=== PATIENT | female | born 1955 | race Caucasian/White ===

== ENCOUNTER 2017-12-17 20:45 | Emergency (ER) | payer OTHER, SELFPAY ==
[2017-12-17 20:47] VITALS: BP 159/78; PULSE 102; RESP 20; TEMP 36.7; O2SAT 98; BMI 36.4
== END 2017-12-17 21:10 | disposition left against medical advice (07) ==
LOC: ED 21:12
PROVIDERS: Emergency Provider Emergency Medicine; Family Provider Family Medicine; PCP Family Medicine
DX: R69 Illness, unspecified (principal)

== ENCOUNTER → 2018-02-06 10:03 | Outpatient (CLI) | payer SELFPAY | PROVIDERS: Family Provider Family Medicine; PCP Family Medicine; Visit Provider Urology | DX: N39.0 Urinary tract infection, site not specified (principal) | CPT/HCPCS: 87086; 87088; 87186 ==

== ENCOUNTER → 2018-03-21 11:07 | Outpatient (CLI) | payer SELFPAY ==
[2018-03-21 12:31] LABS: Creatinine, Serum 0.92 mg/dL (0.55-1.02); EST Glomerular Filtration Rate 65 mL/min (>60); Est Glom Filt Rate - Afr Amer 79 mL/min (>60)
== END ==
PROVIDERS: Family Provider Family Medicine; PCP Family Medicine; Referring Provider Urology; Visit Provider Urology
DX: R31.0 Gross hematuria (principal)
CPT/HCPCS: 36415; 82565

== ENCOUNTER → 2018-03-26 07:15 | Outpatient (CLI) | payer SELFPAY ==
--- NOTE | 2018-03-26 07:24 | CT_ITS ---
STUDY: CT ABDOMEN AND PELVIS WITH CONTRAST REASON FOR EXAM: Female, 63 years old. Gross hematuria since October. Irregular heart rate. RADIATION DOSAGE (If Supplied By Facility): CTDIvol = ( 24.71 ) mGy, DLP = ( 3847.89 ) mGycm TECHNIQUE: Transaxial images were obtained from the dome of the diaphragm to the symphysis pubis without oral contrast. 100 ml of Isovue 250 contrast was administered. Sagittal and coronal images were reconstructed. Individualized dose optimization techniques were used for this CT. COMPARISON: None. FINDINGS: The visualized lung bases are unremarkable. The visualized portions of the heart are within normal limits. The liver is enlarged and mildly fatty infiltrated. There is no focal mass. There are surgical clips in the gallbladder fossa consistent with a prior cholecystectomy. Normal spleen. Normal pancreas. Normal bilateral adrenal glands. Normal right kidney. Normal left kidney. Normal bilateral ureters. Normal visualized stomach. Normal small intestine. Normal colon. There is sigmoid diverticulosis without acute inflammatory change. The proximal colon is grossly normal. There is diffuse atherosclerotic calcification of the abdominal aorta, without a demonstrated aneurysm. Normal inferior vena cava. Normal retroperitoneum. Normal urinary bladder. Normal vaginal cuff. There is no pelvic lymphadenopathy or mass. No free air or free fluid is seen within the peritoneal cavity. There is an umbilical hernia of omental fat. The abdominal wall is otherwise unremarkable. There is mild flattening of lumbar lordosis with scattered degenerative changes most marked at L4-5 where there is evidence of spinal mild spinal stenosis.. CT/CT Abd/Pelvis W/WO Contrast IMPRESSION: 1. No visualized abnormality of the kidneys ureters or urinary bladder. 2. Enlarged fatty infiltrated liver without mass. 3. Diverticulosis without acute inflammatory change. 4. Status post hysterectomy and cholecystectomy. 5. Degenerative changes of the lumbar spine. Electronically Signed: Eddie Power DO at 17:09 EDT Tel [phone], Service support ,
== END ==
PROVIDERS: Family Provider Family Medicine; PCP Family Medicine; Referring Provider Urology; Visit Provider Urology
DX: R31.0 Gross hematuria (principal)
CPT/HCPCS: 74178; Q9967

== ENCOUNTER → 2018-04-18 10:01 | Outpatient (CLI) | payer SELFPAY ==
--- NOTE | 2018-04-18 10:06 | CYSPIN_PTH ---
PATIENT: KYLEE LING LOC: [facility] U#:[id number] AGE/SX: 70/F ROOM: RE04/18/[address]: Dr. Brooke Dickson MD : 1955 BED: DIS: SPEC #: [id number] RECD: 04/18/18 12:33 STATUS: GREGORY FELICIA #: [id number] BOBBY: 04/18/18 10:[address]: Brooke Dickson DEPT: CYTOLOGY RECD BY: Joseph Marc ENTERED: 04/18/18 12:33 SP TYPE: CYSPIN FL OTHR DR: Dr. Attila Gill, Tissues: Urine Procedures: Pap Stain (control) Special Stain Group II Cytospin Fluid HEADER OPERATION: Not noted PRE-OP DIAGNOSIS: Hematuria TISSUE SUBMITTED: Urine for cytology DIAGNOSIS CYTOLOGY Urine for cytology (cytospin): Negative for malignant cells. SJ:kamran 04/19/18 CYTOLOGY STUDY Slides are reviewed. The specimen predominantly consists of benign squamous epithelial cells, a few neutrophils, organisms consistent with bacteria and a few red blood cells. CYTOLOGY GROSS Received is 20 ml of cloudy light yellow fluid labeled with the patient's name and and designated per the requisition as urine. Submitted for cytology preparation. / 04/18/18 TC:5 CPT: 97711
[2018-04-18 10:07] LABS: Cytology, Body Fluid / CSF SEE PATHOLOGY REPORT
== END ==
PROVIDERS: Family Provider Family Medicine; PCP Family Medicine; Referring Provider Urology; Visit Provider Urology
DX: R31.0 Gross hematuria (principal)
CPT/HCPCS: 88108; 88313

== ENCOUNTER 2023-01-18 10:15 | Outpatient (RCR) | payer MEDICARE, SELFPAY ==
[2022-12-27 12:56] VITALS: BP 173/82; PULSE 77; RESP 16; TEMP 36; BMI 41.8
--- NOTE | 2022-12-27 16:29 | HP.PCM_ITS ---
History of Present Illness Date of Service: 12/27/22 Chief Complaint: Chronic wound of the right great toe History of Wound: This is a 67-year-old diabetic female who presents with open wound on the right great toe which has been present for approximately 5 weeks. She is somewhat uncertain as to the etiology of the wound, though does not exclude the possibility of trauma. She has been intermittently applying Neosporin topically. She was diagnosed with cellulitis by her primary care physician, and has been treated with courses of oral Cipro and Bactrim. An x- ray on December 15, 2022, revealed no evidence of osteomyelitis or foreign body. The patient monitors her blood sugars, and is only moderately well controlled. Recent blood work was done at [facility], with results as follows: Hemoglobin A1c 6.8, glucose 121, TSH 2.40, sodium 143, potassium 4.1, chloride 103, BUN 8, creatinine 0.94, calcium 9.2, protein 6.2, albumin 3.5, alkaline phosphatase 71, AST 18, ALT 36, cholesterol 205, triglycerides 118, HDL cholesterol 49, LDL cholesterol 132. [facility] Medical History Chronic wound Diabetes mellitus Hypertension Hypothyroidism Morbid obesity with BMI of 40.0-44.9, adult Open toe wound Home Medications Cetirizine Hcl [Zyrtec] 10 mg PO QHS 05/04/14 [History Last Taken Unknown] calcium carbonate 600 mg calcium (1,500 mg) tablet (Caltrate 600) 1,200 mg PO QHS 05/04/14 [History Last Taken Unknown] cholecalciferol (vitamin D3) 25 mcg (1,000 unit) tablet (Vitamin D3) 2,000 unit PO DAILY 05/04/14 [History Last Taken Unknown] escitalopram oxalate 20 mg tablet 20 mg PO QHS 05/04/14 [History Last Taken Unknown] metoprolol tartrate 100 mg tablet 50 mg PO Q12H 05/04/14 [History Last Taken 05/12/14 19:45] risperidone 0.5 mg tablet 1.5 mg PO QHS 05/04/14 [History Last Taken Unknown] acidophilus 25 million cell-pectin, citrus 100 mg tablet 1 ea PO BID #10 tabs 05/14/14 [Rx Last Taken Unknown] clindamycin HCl 300 mg capsule (Cleocin HCl) 300 mg PO TID ##15 05/14/14 [Rx Last Taken Unknown] oxycodone-acetaminophen 5 mg-325 mg tablet 1 - 2 tab PO 4X/DAY PRN PRN Pain #50 tabs 05/14/14 [Rx Last Taken Unknown] promethazine 25 mg tablet 25 mg PO 4X/DAY PRN PRN Nausea ##30 05/14/14 [Rx Last Taken Unknown] acetaminophen 500 mg capsule 1,000 mg PO Q6H PRN pain 12/27/22 [History Last Taken Unknown] albuterol sulfate 90 mcg/actuation aerosol inhaler (ProAir HFA) 2 inh inhalation Q4H PRN shortness of breath or wheezing 12/27/22 [History Last Taken Unknown] dulaglutide 0.75 mg/0.5 mL subcutaneous pen injector (Trulicity) 0.75 mg subcut QWEEK 12/27/22 [History Last Taken Unknown] dulaglutide 1.5 mg/0.5 mL subcutaneous pen injector (Trulicity) 1.5 mg subcut QWEEK 12/27/22 [History Last Taken Unknown] gabapentin 300 mg capsule 300 mg PO TID 12/27/22 [History Last Taken Unknown] hydrocodone-acetaminophen 5-325mg 5mg-325mg 1 tab PO TID PRN pain 12/27/22 [History Last Taken Unknown] hydroxyzine HCl 25 mg tablet 25 mg PO Q6H PRN itching 12/27/22 [History Last Taken Unknown] hyoscyamine 0.15 mg tablet 0.125 mg PO Q6H PRN PRN dyspepsia 12/27/22 [History Last Taken Unknown] isosorbide mononitrate 30 mg tablet,extended release 24 hr 30 mg PO DAILY 12/27/22 [History Last Taken Unknown] levothyroxine 75 mcg capsule 75 mcg PO DAILY 12/27/22 [History Last Taken Unknown] lisinopril 2.5 mg tablet 2.5 mg PO DAILY 12/27/22 [History Last Taken Unknown] meclizine 12.5 mg tablet 12.5 mg PO TID PRN dizziness 12/27/22 [History Last Taken Unknown] ondansetron 4 mg disintegrating tablet 4 mg PO Q6H PRN nausea and vomiting 12/27/22 [History Last Taken Unknown] oxybutynin chloride 15 mg tablet,extended release 24 hr 15 mg PO DAILY 12/27/22 [History Last Taken Unknown] pantoprazole 40 mg tablet,delayed release 40 mg PO DAILY 12/27/22 [History Last Taken Unknown] pioglitazone 15 mg tablet 15 mg PO DAILY 12/27/22 [History Last Taken Unknown] rosuvastatin 20 mg tablet 20 mg PO DAILY 12/27/22 [History Last Taken Unknown] tizanidine 4 mg capsule 4 mg PO Q8H 12/27/22 [History Last Taken Unknown] Allergy/AdvReac Type Severity Reaction Status Date / Time clindamycin Allergy Mild Hives Verified 12/27/22 13:14 amoxicillin [Amoxicillin] Allergy Hives Verified 12/17/17 20:49 cefaclor [From Ceclor] Allergy Hives Verified 12/17/17 20:49 erythromycin base Allergy Hives Verified 12/17/17 20:49 [Erythromycin Base] nitrofurantoin Allergy Hives Verified 12/17/17 20:49 macrocrystalline [From Macrodantin] Penicillins Allergy Hives Verified 12/17/17 20:49 Sulfa (Sulfonamide AdvReac Vomiting Verified 12/17/17 20:49 Antibiotics) Surgical History History of appendectomy History of bilateral breast reduction surgery History of bunionectomy of both great toes History of carpal tunnel release History of cholecystectomy History of colon resection History of hysterectomy Social History Smoking Status: Never smoker Vital Signs Vital Signs Vital Signs: 12/27/22 12:56 Temperature 96.8 F L Temperature Source Temporal Pulse Rate 77 Respiratory Rate 16 Blood Pressure 173/82 H Blood Pressure Mean 112 Blood Pressure Source Monitor Blood Pressure Position Sitting Blood Pressure Location Left Arm Oxygen Delivery Method Room Air Weight Weight: 267 lb Body Mass Index (BMI) 41.8 Physical Exam Const alert, oriented x3, no apparent distress and well nourished Constitutional Narrative: The patient is morbidly obese. General Appearance: cooperative, comfortable, well kempt and well developed Orientation / Consciousness: awake, oriented to person, oriented to place and oriented to time HEENT normocephalic, head/scalp atraumatic and hearing grossly normal bilaterally Head and Scalp: normal to inspection, normocephalic and atraumatic Face and Sinus: normal facial exam Nose: external nose normal External Ear: external ears normal Eyes PERRL, EOMs intact bilaterally and conjunctivae normal General Eye: normal appearance of both eyes Neck full ROM Resp normal respiratory effort, normal air movement, no retractions and no use of accessory muscles Effort and Inspection: able to speak in complete sentences Extremity no calf tenderness General Extremity: Negative for clubbing or cyanosis Skin Wound Narrative: An ulceration is noted on the plantar aspect of the right great toe, near the interphalangeal joint. There is callus at this location, suggesting presence of pressure phenomenon or friction. There is no sign of infection or cellulitis. There is no drainage. There is no odor. There is a moderate amount of bioburden and nonviable tissue. Dimensions are documented elsewhere. Neuro oriented x3, CN's II-XII intact bilaterally, moves all extremities and no focal motor deficits Sensorium / Orientation: awake, alert, oriented to person, oriented to place, oriented to time and orientation impaired Psych Appearance: grossly normal and appropriate Attitude: calm Activity / Motor Behavior: appropriate eye contact Speech: normal speech Mood & Affect: euthymic mood Thought Process: normal thought process Thought Content: normal thought content Attention / Concentration: attention grossly intact Debridement Note Debridement Note Wound debrided: Right great toe Laterality: Right Type of Debridement: Excisional debridement Anesthesia Used: 5% Lidocaine Gel Depth: Down to and including healthy tissue and in the subcutaneous layer Percentage of wound debrided: 100 Instrument Used: 3mm curette Tissue Removed: Nonviable tissue, callus, and bioburden Severity: Fat Layer Exposed Amount of bleeding with debridement: Mild Bleeding Controlled with: Compression and gauze Patient tolerated procedure: Patient tolerated procedure well Post-Debridement Measurements and Additional Note: Post-Debridement Measurements/Treatment - Nurse 1 - General Ulcer Assessment Start: 12/27/22 12:55 Freq: Status: Active Protocol: CYNDI Activity Type Activity Date Activity User E-sign Co-sign Detail Recorded Client Recorded Date Recorded By Document 12/27/22 12:56 [facility] [id number] 12/27/22 13:09 [facility] 12/27/22 12:56 - Today's Visit Information Type of service Follow-up Visit (Physician/SENIOR IOS DEVELOPER ) Arrival Mode Ambulatory Transfer Assistance None Accompanied by Patient Identification Verified (Name & Yes ) Patient Requires Transmission-Based No Precautions Height and Weight Height 5 ft 7 in Weight 267 lb Weight in Pounds 267.0 lbs Body Mass Index (BMI) 41.8 BMI Classification Obese BSA - Nancy 2.29 Vital Signs Temperature (97.8 F-99.1 F) 96.8 F L Temperature Source Temporal Pulse Rate (60-100) 77 Pulse Location Monitor Respiratory Rate (12-18) 16 Respiratory rate source Observation Oxygen Delivery Method Room Air Blood Pressure (90/60-120/80) 173/82 H Blood Pressure Mean 112 Source Monitor Position Sitting Blood Pressure Location Left Arm History Since Last Visit- (Skip if this is Patient's initial visit) Left Footwear Regular Shoe Right Footwear Regular Shoe Pain Scale: 0-10 Numeric Is Patient Pain Free? Yes Lower Extremity Assessment/ Foot Assessment/ Toe Nail Assessment Right -Posterior Tibial Doppler Multiphasic -Dorsalis Pedis Doppler Multiphasic -Extremity Color Pale -Hair Growth on Legs Yes -Hair Growth on Toes No -Other Deformity No -Prior Foot Ulcer No -Charcot Joint No -Prior Amputation No -Thick No -Discolored No -Deformed No -Improper Length & Hygeine No Left -Posterior Tibial Doppler Multiphasic -Dorsalis Pedis Doppler Multiphasic -Extremity Color Pale -Hair Growth on Legs Yes -Hair Growth on Toes No -Other Deformity No -Prior Foot Ulcer No -Charcot Joint No -Prior Amputation No -Thick No -Discolored No -Deformed No -Improper Length & Hygeine No Communication Assessment Preferred language French Medical Office Assistant Required No Able to Read Yes Able to Write Yes Communication Tools None Right Hearing Abillity Normal Left Hearing Abillity Normal Visual Assistive Devices Glasses Teaching Assessment Preferences Verbal,Written, Audio/Visual, Demonstration Barriers to Learning None Readiness To Learn Excellent Willingness to Engage in Self Management High Activies Readiness to Engage in Self Management High Activities Anxiety Level Calm Cooperation Cooperative Perception Coherent Interest in Health Problem Asks Questions Education Importance Acknowledges Need Does Patient Smoke tobacco or other No substances Smoking Status Never smoker Is Patient Diabetic Yes Functional Assessment Recent Decline in Ability to Perform Denies Any Declines Culture/Lutheran/Automotive Service Director Cultural/Lutheran Needs that may affect No Treatment Plan Teaching: Wound Center *Welcome to the Wound Center -Person Taught Patient, Significant Other -Response to teaching Verbalize understanding Welcome to the Wound Care Center French - Nurse 1 - General Ulcer Measurement Start: 12/27/22 12:55 Freq: Status: Active Protocol: Activity Type Activity Date Activity User E-sign Co-sign Detail Recorded Client Recorded Date Recorded By Document 12/27/22 12:56 [facility] [id number] 12/27/22 13:09 [facility] 12/27/22 12:56 Wound Center Nurse 1 #1- R HALLUX PL[employer]AR -Combined with other wound No -Current Size (cm) - Length 0.1 -Current Size (cm) - Width 1 -Current Size (cm) - Depth 0.1 -Total Square Cm 0.1 -Date of Last Picture (Recall this 12/27/22 field) -Photo Taken Yes -Epithelialization None Present -Tunneling No -Undermining/Tunneling No -Circular Undermining No -Exudate Amt Small -Exudate Type Serosanguineous -Wound Margin Distinct, Outline Attached -Granulation Amt Small (1-33%) -Granulation Quality Red -Slough/Fibrin Yes -Necrosis Amt Large (67-100%) -Necrotic Tissue Type Adherent Slough -Texture (Xena-wound Skin Appearance) Callus,Scarring -Moisture ([place]-wound Skin Appearance) Assessed,Dry/ Scaly -Color ([place]-wound Skin Appearance) Assessed -Temperature ([place]-wound Skin No Abnormality Appearance) (Pt Warm) -Tenderness on Palpation ([place]-wound No Skin Appearance) -Ulcer Cleansing Rinsed/ Irrigated with Saline -Foul Odor after Cleansing No -Anesthetic Used 5% Lidocaine Gel Lower Limb Edema Present Yes Right Calf (cm) 38.1 Right Ankle (cm) 21 - Nurse 2 - General Ulcer CM Notes Start: 12/27/22 12:55 Freq: Status: Active Protocol: Activity Type Activity Date Activity User E-sign Co-sign Detail Recorded Client Recorded Date Recorded By Document 12/27/22 16:06 PL [id number] 12/27/22 16:07 PL 12/27/22 16:06 Wound Center Nurse 2 #1- R HALLUX [employer]AR -Time 13:29 -Correct Patient Yes -Correct Side, Site, Position Yes -Correct Procedure Yes -Procedure Performed Yes -Type of Procedure Debridement -Clinical Debridement Subcutaneous -Tissue Removed Subcutaneous -Post Debridement (cm) - Length 0.1 -Post Debridement (cm) - Width 1.0 -Post Debridement (cm) - Depth 0.1 -Total Square (Post) (cm) 0.10 -Area of Debridement (cm) - Length 0.1 -Area of Debridement (cm) - Width 1.0 -Total Square (Area) (cm) 0.10 -Tunneling No -Undermining/Tunneling No -Circular Undermining No -Wound/Ulcer Outcome Not Healed -Ulcer Cleansing Rinsed/ Irrigated with Saline -Foul Odor after Cleansing No -Bioengineered Tissue No -Bleeding Controlled with Pressure -Treatment Response Procedure Tolerated Well -Debridement - Subq, 1st 20sq cm Yes Pain Scale: 0-10 Numeric Is Patient Pain Free? Yes - Nurse 3 - General Ulcer D/C NN Start: 12/27/22 12:55 Freq: Status: Active Protocol: Activity Type Activity Date Activity User E-sign Co-sign Detail Recorded Client Recorded Date Recorded By Document 12/27/22 13:49 [id number] 12/27/22 13:50 12/27/22 13:49 Wound Care Center Nurse 3 #1- R HALLUX PLANTAR -Ulcer Cleansing Rinsed/ Irrigated with Saline -Primary Dressing Applied C Hydrogel ($) -Primary Dressing Covered/Secured with Dry Gauze, Secured with Tape Pain Scale: 0-10 Numeric Is Patient Pain Free? Yes - Visit Discharge Discharge Condition Stable Ambulatory Status Ambulatory Transportation Private Auto Medication Reconcilliation completed & No provided to patient/care provider Clinical Summary of Care Provided Yes Assessment/Plan Assessment/Plan (1) Open toe wound: CODE(S): S91.109A - Unspecified open wound of unspecified toe(s) without damage to nail, initial encounter QUALIFIERS: Encounter type: initial encounter Qualified Code(s): S91.109A - Unspecified open wound of unspecified toe(s) without damage to nail, initial encounter (2) Chronic wound: CODE(S): T14.8XXA - Other injury of unspecified body region, initial encounter (3) Diabetes mellitus: CODE(S): E11.9 - Type 2 diabetes mellitus without complications (4) Morbid obesity with BMI of 40.0-44.9, adult: CODE(S): E66.01 - Morbid (severe) obesity due to excess calories; Z68.41 - Body mass index [BMI] 40.0-44.9, adult (5) Hypertension: CODE(S): I10 - Essential (primary) hypertension (6) Hypothyroidism: CODE(S): E03.9 - Hypothyroidism, unspecified (7) History of colon resection: CODE(S): Z90.49 - Acquired absence of other specified parts of digestive tract (8) History of appendectomy: CODE(S): Z90.49 - Acquired absence of other specified parts of digestive tract (9) History of bilateral breast reduction surgery: CODE(S): Z98.890 - Other specified postprocedural states (10) History of carpal tunnel release: CODE(S): Z98.890 - Other specified postprocedural states (11) History of bunionectomy of both great toes: CODE(S): Z98.890 - Other specified postprocedural states (12) History of hysterectomy: CODE(S): Z90.710 - Acquired absence of both cervix and uterus (13) History of cholecystectomy: CODE(S): Z90.49 - Acquired absence of other specified parts of digestive tract PLAN: Plan This is a 67-year-old diabetic female who presents with an ulceration on the plantar aspect of her right great toe. This ulceration has been present for approximately 5 weeks. Its etiology is uncertain. However, there is considerable amount of callus surrounding the ulceration, suggesting the existence of pressure phenomenon or friction. This matter has been discussed with the patient and her at the bedside. She has been urged to assure that her shoes fit appropriately. Offloading measures have been recommended. We are to place a consult to the podiatry service, for assessment in this regard. Proper footwear or inserts will be helpful. We are to implement the use of collagen hydrogel topically, which will be applied by the patient on a daily basis. The appropriate means of application has been demonstrated. Optimization of the patient's glycemic control has been recommended. Nutritional optimization has also been discussed. Patient is to return in 1 week for reassessment. Total time: 50 minutes
[2023-01-02 10:23] VITALS: BP 165/81; PULSE 79; RESP 18; TEMP 36.2; BMI 41.8
--- NOTE | 2023-01-02 12:59 | HP.PCM_ITS ---
History of Present Illness Date of Service: 01/02/23 Chief Complaint: Chronic wound of the right great toe History of Wound: This is a 67-year-old diabetic female who presented with open wound on the right great toe which had been present for approximately 5 weeks. She is somewhat uncertain as to the etiology of the wound, though does not exclude the possibility of trauma. She had been intermittently applying Neosporin topically. She was diagnosed with cellulitis by her primary care physician, and has been treated with courses of oral Cipro and Bactrim. An x- ray on December 15, 2022, revealed no evidence of osteomyelitis or foreign body. The patient monitors her blood sugars, and is only moderately well controlled. Recent blood work was done at [facility], with results as follows: Hemoglobin A1c 6.8, glucose 121, TSH 2.40, sodium 143, potassium 4.1, chloride 103, BUN 8, creatinine 0.94, calcium 9.2, protein 6.2, albumin 3.5, alkaline phosphatase 71, AST 18, ALT 36, cholesterol 205, triglycerides 118, HDL cholesterol 49, LDL cholesterol 132. [facility] Medical History Chronic wound Diabetes mellitus Hypertension Hypothyroidism Morbid obesity with BMI of 40.0-44.9, adult Open toe wound Home Medications Cetirizine Hcl [Zyrtec] 10 mg PO QHS 05/04/14 [History Last Taken Unknown] calcium carbonate 600 mg calcium (1,500 mg) tablet (Caltrate 600) 1,200 mg PO QHS 05/04/14 [History Last Taken Unknown] cholecalciferol (vitamin D3) 25 mcg (1,000 unit) tablet (Vitamin D3) 2,000 unit PO DAILY 05/04/14 [History Last Taken Unknown] escitalopram oxalate 20 mg tablet 20 mg PO QHS 05/04/14 [History Last Taken Unknown] metoprolol tartrate 100 mg tablet 50 mg PO Q12H 05/04/14 [History Last Taken 05/12/14 19:45] risperidone 0.5 mg tablet 1.5 mg PO QHS 05/04/14 [History Last Taken Unknown] acidophilus 25 million cell-pectin, citrus 100 mg tablet 1 ea PO BID #10 tabs 05/14/14 [Rx Last Taken Unknown] clindamycin HCl 300 mg capsule (Cleocin HCl) 300 mg PO TID ##15 05/14/14 [Rx Last Taken Unknown] oxycodone-acetaminophen 5 mg-325 mg tablet 1 - 2 tab PO 4X/DAY PRN PRN Pain #50 tabs 05/14/14 [Rx Last Taken Unknown] promethazine 25 mg tablet 25 mg PO 4X/DAY PRN PRN Nausea ##30 05/14/14 [Rx Last Taken Unknown] acetaminophen 500 mg capsule 1,000 mg PO Q6H PRN pain 12/27/22 [History Last Taken Unknown] albuterol sulfate 90 mcg/actuation aerosol inhaler (ProAir HFA) 2 inh inhalation Q4H PRN shortness of breath or wheezing 12/27/22 [History Last Taken Unknown] dulaglutide 0.75 mg/0.5 mL subcutaneous pen injector (Trulicity) 0.75 mg subcut QWEEK 12/27/22 [History Last Taken Unknown] dulaglutide 1.5 mg/0.5 mL subcutaneous pen injector (Trulicity) 1.5 mg subcut QWEEK 12/27/22 [History Last Taken Unknown] gabapentin 300 mg capsule 300 mg PO TID 12/27/22 [History Last Taken Unknown] hydrocodone-acetaminophen 5-325mg 5mg-325mg 1 tab PO TID PRN pain 12/27/22 [History Last Taken Unknown] hydroxyzine HCl 25 mg tablet 25 mg PO Q6H PRN itching 12/27/22 [History Last Taken Unknown] hyoscyamine 0.15 mg tablet 0.125 mg PO Q6H PRN PRN dyspepsia 12/27/22 [History Last Taken Unknown] isosorbide mononitrate 30 mg tablet,extended release 24 hr 30 mg PO DAILY 12/27/22 [History Last Taken Unknown] levothyroxine 75 mcg capsule 75 mcg PO DAILY 12/27/22 [History Last Taken Unknown] lisinopril 2.5 mg tablet 2.5 mg PO DAILY 12/27/22 [History Last Taken Unknown] meclizine 12.5 mg tablet 12.5 mg PO TID PRN dizziness 12/27/22 [History Last Taken Unknown] ondansetron 4 mg disintegrating tablet 4 mg PO Q6H PRN nausea and vomiting 12/27/22 [History Last Taken Unknown] oxybutynin chloride 15 mg tablet,extended release 24 hr 15 mg PO DAILY 12/27/22 [History Last Taken Unknown] pantoprazole 40 mg tablet,delayed release 40 mg PO DAILY 12/27/22 [History Last Taken Unknown] pioglitazone 15 mg tablet 15 mg PO DAILY 12/27/22 [History Last Taken Unknown] rosuvastatin 20 mg tablet 20 mg PO DAILY 12/27/22 [History Last Taken Unknown] tizanidine 4 mg capsule 4 mg PO Q8H 12/27/22 [History Last Taken Unknown] Allergy/AdvReac Type Severity Reaction Status Date / Time clindamycin Allergy Mild Hives Verified 12/27/22 13:14 amoxicillin [Amoxicillin] Allergy Hives Verified 12/17/17 20:49 cefaclor [From Ceclor] Allergy Hives Verified 12/17/17 20:49 erythromycin base Allergy Hives Verified 12/17/17 20:49 [Erythromycin Base] nitrofurantoin Allergy Hives Verified 12/17/17 20:49 macrocrystalline [From Macrodantin] Penicillins Allergy Hives Verified 12/17/17 20:49 Sulfa (Sulfonamide AdvReac Vomiting Verified 12/17/17 20:49 Antibiotics) Surgical History History of appendectomy History of bilateral breast reduction surgery History of bunionectomy of both great toes History of carpal tunnel release History of cholecystectomy History of colon resection History of hysterectomy Social History Smoking Status: Never smoker Vital Signs Vital Signs Vital Signs: 01/02/23 10:23 Temperature 97.2 F L Temperature Source Temporal Pulse Rate 79 Respiratory Rate 18 Blood Pressure 165/81 H Blood Pressure Mean 109 Blood Pressure Source Monitor Blood Pressure Position Sitting Blood Pressure Location Left Arm Oxygen Delivery Method Room Air Weight Weight: 267 lb Body Mass Index (BMI) 41.8 Physical Exam Const alert, oriented x3, no apparent distress and well nourished Constitutional Narrative: The patient is morbidly obese. General Appearance: cooperative, comfortable, well kempt and well developed Orientation / Consciousness: awake, oriented to person, oriented to place and oriented to time HEENT normocephalic, head/scalp atraumatic and hearing grossly normal bilaterally Head and Scalp: normal to inspection, normocephalic and atraumatic Face and Sinus: normal facial exam Nose: external nose normal External Ear: external ears normal Eyes PERRL, EOMs intact bilaterally and conjunctivae normal General Eye: normal appearance of both eyes Neck full ROM Resp normal respiratory effort, normal air movement, no retractions and no use of accessory muscles Effort and Inspection: able to speak in complete sentences Extremity no calf tenderness General Extremity: Negative for clubbing or cyanosis Skin Wound Narrative: An ulceration is noted on the plantar aspect of the right great toe, near the interphalangeal joint. There is callus at this location, suggesting presence of pressure phenomenon or friction. There is no sign of infection or cellulitis. There is no drainage. There is no odor. There is a moderate amount of bioburden and nonviable tissue. Dimensions are documented elsewhere. Neuro oriented x3, CN's II-XII intact bilaterally, moves all extremities and no focal motor deficits Sensorium / Orientation: awake, alert, oriented to person, oriented to place, oriented to time and orientation impaired Psych Appearance: grossly normal and appropriate Attitude: calm Activity / Motor Behavior: appropriate eye contact Speech: normal speech Mood & Affect: euthymic mood Thought Process: normal thought process Thought Content: normal thought content Attention / Concentration: attention grossly intact Debridement Note Debridement Note Wound debrided: Right great toe Laterality: Right Type of Debridement: Excisional debridement Anesthesia Used: 5% Lidocaine Gel Depth: Down to and including healthy tissue and in the subcutaneous layer Percentage of wound debrided: 100 Instrument Used: 3mm curette Tissue Removed: Nonviable tissue, callus, and bioburden Severity: Fat Layer Exposed Amount of bleeding with debridement: Mild Bleeding Controlled with: Compression and gauze Patient tolerated procedure: Patient tolerated procedure well Post-Debridement Measurements and Additional Note: Post-Debridement Measurements/Treatment JOSEFINA - Nurse 1 - General Ulcer Assessment Start: 12/27/22 12:55 Freq: Status: Active Protocol: CYNDI Activity Type Activity Date Activity User E-sign Co-sign Detail Recorded Client Recorded Date Recorded By Document 12/27/22 12:56 BMF [id number] 12/27/22 13:09 BMF Document 01/02/23 10:23 MW [id number] 01/02/23 10:28 MW 12/27/22 01/02/23 12:56 10:23 WC - Today's Visit Information Type of service Follow-up Visit Follow-up Visit (Physician/GEOPHYSICAL OBSERVER (Physician/GEOPHYSICAL OBSERVER ) ) Arrival Mode Ambulatory Ambulatory Transfer Assistance None None Accompanied by Patient Identification Verified (Name & Yes Yes ) Patient Requires Transmission-Based No No Precautions Safety Precautions NA Height and Weight Height 5 ft 7 in Weight 267 lb Weight in Pounds 267.0 lbs Body Mass Index (BMI) 41.8 41.8 BMI Classification Obese Obese BSA - Nancy 2.29 Vital Signs Temperature (97.8 F-99.1 F) 96.8 F L 97.2 F L Temperature Source Temporal Temporal Pulse Rate (60-100) 77 79 Pulse Location Monitor Monitor Respiratory Rate (12-18) 16 18 Respiratory rate source Observation Observation Oxygen Delivery Method Room Air Room Air Blood Pressure (90/60-120/80) 173/82 H 165/81 H Blood Pressure Mean 112 109 Source Monitor Monitor Position Sitting Sitting Blood Pressure Location Left Arm Left Arm History Since Last Visit- (Skip if this is Patient's initial visit) Have you changed medications since your No last visit? Any new allergies or adverse reactions No Had a fall/change in ADL's that may No increase risk of falls Signs or symptoms of abuse and/or No neglect since last visit Have you been in the hospital since your No last visit? Has dressing in place as prescribed Yes Has compression in place as prescribed N/A Has offloadiing in place as prescribed N/A Experienced any changes in pain level or No management Left Footwear Regular Shoe Regular Shoe Right Footwear Regular Shoe Regular Shoe Pain Scale: 0-10 Numeric Is Patient Pain Free? Yes Yes Lower Extremity Assessment/ Foot Assessment/ Toe Nail Assessment Right -Posterior Tibial Doppler Multiphasic -Dorsalis Pedis Doppler Multiphasic -Extremity Color Pale -Hair Growth on Legs Yes -Hair Growth on Toes No -Other Deformity No -Prior Foot Ulcer No -Charcot Joint No -Prior Amputation No -Thick No -Discolored No -Deformed No -Improper Length & Hygeine No Left -Posterior Tibial Doppler Multiphasic -Dorsalis Pedis Doppler Multiphasic -Extremity Color Pale -Hair Growth on Legs Yes -Hair Growth on Toes No -Other Deformity No -Prior Foot Ulcer No -Charcot Joint No -Prior Amputation No -Thick No -Discolored No -Deformed No -Improper Length & Hygeine No Communication Assessment Preferred language Estonian Leach Runner Required No Able to Read Yes Able to Write Yes Communication Tools None Right Hearing Abillity Normal Left Hearing Abillity Normal Visual Assistive Devices Glasses Teaching Assessment Preferences Verbal,Written, Audio/Visual, Demonstration Barriers to Learning None Readiness To Learn Excellent Willingness to Engage in Self Management High Activies Readiness to Engage in Self Management High Activities Anxiety Level Calm Cooperation Cooperative Perception Coherent Interest in Health Problem Asks Questions Education Importance Acknowledges Need Does Patient Smoke tobacco or other No substances Smoking Status Never smoker Is Patient Diabetic Yes Functional Assessment Recent Decline in Ability to Perform Denies Any Declines Culture/Cheondoism/Hand Sewer Shoes Cultural/Cheondoism Needs that may affect No Treatment Plan Teaching: Wound Center *Welcome to the Wound Center -Person Taught Patient, Significant Other -Response to teaching Verbalize understanding Welcome to the Wound Care Center English ROCHA - Nurse 1 - General Ulcer Measurement Start: 12/27/22 12:55 Freq: Status: Active Protocol: Activity Type Activity Date Activity User E-sign Co-sign Detail Recorded Client Recorded Date Recorded By Document 12/27/22 12:56 [facility] [id number] 12/27/22 13:09 [facility] Document 01/02/23 10:23 [id number] 01/02/23 10:28 MW 12/27/22 01/02/23 12:56 10:23 Wound Center Nurse 1 #1- R HALLUX PLANTAR -Combined with other wound No No -Current Size (cm) - Length 0.1 0.1 -Current Size (cm) - Width 1 0.1 -Current Size (cm) - Depth 0.1 0.1 -Total Square Cm 0.1 0.01 -Date of Last Picture (Recall this 12/27/22 field) -Photo Taken Yes No -Epithelialization None Present None Present -Tunneling No No -Undermining/Tunneling No No -Circular Undermining No No -Exudate Amt Small Small -Exudate Type Serosanguineous Serosanguineous -Wound Margin Distinct, Thickened Outline Attached -Granulation Amt Small (1-33%) None Present (0 %) -Granulation Quality Red N/A -Slough/Fibrin Yes Yes -Necrosis Amt Large (67-100%) Large (67-100%) -Necrotic Tissue Type Adherent Slough Adherent Slough -Structure Exposed N/A -Texture (Xena-wound Skin Appearance) Callus,Scarring Assessed,Callus -Moisture ([place]-wound Skin Appearance) Assessed,Dry/ No Abnormality, Scaly Assessed -Color ([place]-wound Skin Appearance) Assessed No Abnormality, Assessed -Temperature ([place]-wound Skin No Abnormality No Abnormality Appearance) (Pt Warm) (Pt Warm) -Tenderness on Palpation ([place]-wound No Skin Appearance) -Ulcer Cleansing Rinsed/ Rinsed/ Irrigated with Irrigated with Saline Saline -Foul Odor after Cleansing No No -Anesthetic Used 5% Lidocaine 5% Lidocaine Gel Gel Lower Limb Edema Present Yes No Right Calf (cm) 38.1 Right Ankle (cm) 21 WC - Nurse 2 - General Ulcer CM Notes Start: 12/27/22 12:55 Freq: Status: Active Protocol: Activity Type Activity Date Activity User E-sign Co-sign Detail Recorded Client Recorded Date Recorded By Document 12/27/22 16:06 PL [id number] 12/27/22 16:07 RAYMON 12/27/22 16:06 Wound Center Nurse 2 #1- R HALLUX PLANTAR -Time 13:29 -Correct Patient Yes -Correct Side, Site, Position Yes -Correct Procedure Yes -Procedure Performed Yes -Type of Procedure Debridement -Clinical Debridement Subcutaneous -Tissue Removed Subcutaneous -Post Debridement (cm) - Length 0.1 -Post Debridement (cm) - Width 1.0 -Post Debridement (cm) - Depth 0.1 -Total Square (Post) (cm) 0.10 -Area of Debridement (cm) - Length 0.1 -Area of Debridement (cm) - Width 1.0 -Total Square (Area) (cm) 0.10 -Tunneling No -Undermining/Tunneling No -Circular Undermining No -Wound/Ulcer Outcome Not Healed -Ulcer Cleansing Rinsed/ Irrigated with Saline -Foul Odor after Cleansing No -Bioengineered Tissue No -Bleeding Controlled with Pressure -Treatment Response Procedure Tolerated Well -Debridement - Subq, 1st 20sq cm Yes Pain Scale: 0-10 Numeric Is Patient Pain Free? Yes JOSEFINA - Nurse 3 - General Ulcer D/C NN Start: 12/27/22 12:55 Freq: Status: Active Protocol: Activity Type Activity Date Activity User E-sign Co-sign Detail Recorded Client Recorded Date Recorded By Document 12/27/22 13:49 JOSE ENRIQUE [id number] 12/27/22 13:50 KW 12/27/22 13:49 Wound Care Center Nurse 3 #1- R HALLUX PLANTAR -Ulcer Cleansing Rinsed/ Irrigated with Saline -Primary Dressing Applied C Hydrogel ($) -Primary Dressing Covered/Secured with Dry Gauze, Secured with Tape Pain Scale: 0-10 Numeric Is Patient Pain Free? Yes WC - Visit Discharge Discharge Condition Stable Ambulatory Status Ambulatory Transportation Private Auto Medication Reconcilliation completed & No provided to patient/care provider Clinical Summary of Care Provided Yes Assessment/Plan Assessment/Plan (1) Open toe wound: CODE(S): S91.109A - Unspecified open wound of unspecified toe(s) without damage to nail, initial encounter QUALIFIERS: Encounter type: subsequent encounter Qualified Code(s): S91.109D - Unspecified open wound of unspecified toe(s) without damage to nail, subsequent encounter (2) Chronic wound: CODE(S): T14.8XXA - Other injury of unspecified body region, initial encounter (3) Diabetes mellitus: CODE(S): E11.9 - Type 2 diabetes mellitus without complications (4) Morbid obesity with BMI of 40.0-44.9, adult: CODE(S): E66.01 - Morbid (severe) obesity due to excess calories; Z68.41 - Body mass index [BMI] 40.0-44.9, adult (5) Hypertension: CODE(S): I10 - Essential (primary) hypertension (6) Hypothyroidism: CODE(S): E03.9 - Hypothyroidism, unspecified (7) History of colon resection: CODE(S): Z90.49 - Acquired absence of other specified parts of digestive tract (8) History of appendectomy: CODE(S): Z90.49 - Acquired absence of other specified parts of digestive tract (9) History of bilateral breast reduction surgery: CODE(S): Z98.890 - Other specified postprocedural states (10) History of carpal tunnel release: CODE(S): Z98.890 - Other specified postprocedural states (11) History of bunionectomy of both great toes: CODE(S): Z98.890 - Other specified postprocedural states (12) History of hysterectomy: CODE(S): Z90.710 - Acquired absence of both cervix and uterus (13) History of cholecystectomy: CODE(S): Z90.49 - Acquired absence of other specified parts of digestive tract PLAN: Plan This is a 67-year-old diabetic female who presented with an ulceration on the plantar aspect of her right great toe. This ulceration had been present for approximately 5 weeks. Its etiology is uncertain. However, there is considerable amount of callus surrounding the ulceration, suggesting the existence of pressure phenomenon or friction. This matter has been discussed with the patient and her at the bedside. She has been urged to assure that her shoes fit appropriately. Offloading measures have been recommended. We are to place a consult to the Podiatry service, for assessment in this regard. Proper footwear or inserts will be helpful. We are to continue the use of collagen hydrogel topically, which will be applied by the patient on a daily basis. The appropriate means of application has been demonstrated. Optimization of the patient's glycemic control has been recommended. Nutritional optimization has also been discussed. Patient is to return in 1 week for reassessment, with evaluation by the Podiatry service planned. Total time: 26 minutes
[2023-01-11 10:28] VITALS: BP 160/90; PULSE 84; RESP 16; BMI 41.8
--- NOTE | 2023-01-11 13:13 | PCM.WC.HP ---
History of Present Illness Date of Service: 01/11/23 Chief Complaint: Chronic wound of the right great toe History of Wound: This is a 67-year-old diabetic female who presented with open wound on the right great toe which had been present for approximately 7 weeks. She is somewhat uncertain as to the etiology of the wound, though does not exclude the possibility of trauma. She had been intermittently applying Neosporin topically. She was diagnosed with cellulitis by her primary care physician, and has been treated with courses of oral Cipro and Bactrim. An x-ray on December 15, 2022, revealed no evidence of osteomyelitis or foreign body. The patient monitors her blood sugars, and is only moderately well controlled. Recent blood work was done at [facility], with results as follows: Hemoglobin A1c 6.8, glucose 121, TSH 2.40, sodium 143, potassium 4.1, chloride 103, BUN 8, creatinine 0.94, calcium 9.2, protein 6.2, albumin 3.5, alkaline phosphatase 71, AST 18, ALT 36, cholesterol 205, triglycerides 118, HDL cholesterol 49, LDL cholesterol 132. [facility] Medical History Chronic wound Diabetes mellitus Hypertension Hypothyroidism Morbid obesity with BMI of 40.0-44.9, adult Open toe wound Home Medications Cetirizine Hcl [Zyrtec] 10 mg PO QHS 05/04/14 [History Last Taken Unknown] calcium carbonate 600 mg calcium (1,500 mg) tablet (Caltrate 600) 1,200 mg PO QHS 05/04/14 [History Last Taken Unknown] cholecalciferol (vitamin D3) 25 mcg (1,000 unit) tablet (Vitamin D3) 2,000 unit PO DAILY 05/04/14 [History Last Taken Unknown] escitalopram oxalate 20 mg tablet 20 mg PO QHS 05/04/14 [History Last Taken Unknown] metoprolol tartrate 100 mg tablet 50 mg PO Q12H 05/04/14 [History Last Taken 05/12/14 19:45] risperidone 0.5 mg tablet 1.5 mg PO QHS 05/04/14 [History Last Taken Unknown] acidophilus 25 million cell-pectin, citrus 100 mg tablet 1 ea PO BID #10 tabs 05/14/14 [Rx Last Taken Unknown] clindamycin HCl 300 mg capsule (Cleocin HCl) 300 mg PO TID ##15 05/14/14 [Rx Last Taken Unknown] oxycodone-acetaminophen 5 mg-325 mg tablet 1 - 2 tab PO 4X/DAY PRN PRN Pain #50 tabs 05/14/14 [Rx Last Taken Unknown] promethazine 25 mg tablet 25 mg PO 4X/DAY PRN PRN Nausea ##30 05/14/14 [Rx Last Taken Unknown] acetaminophen 500 mg capsule 1,000 mg PO Q6H PRN pain 12/27/22 [History Last Taken Unknown] albuterol sulfate 90 mcg/actuation aerosol inhaler (ProAir HFA) 2 inh inhalation Q4H PRN shortness of breath or wheezing 12/27/22 [History Last Taken Unknown] dulaglutide 0.75 mg/0.5 mL subcutaneous pen injector (Trulicity) 0.75 mg subcut QWEEK 12/27/22 [History Last Taken Unknown] dulaglutide 1.5 mg/0.5 mL subcutaneous pen injector (Trulicity) 1.5 mg subcut QWEEK 12/27/22 [History Last Taken Unknown] gabapentin 300 mg capsule 300 mg PO TID 12/27/22 [History Last Taken Unknown] hydrocodone-acetaminophen 5-325mg 5mg-325mg 1 tab PO TID PRN pain 12/27/22 [History Last Taken Unknown] hydroxyzine HCl 25 mg tablet 25 mg PO Q6H PRN itching 12/27/22 [History Last Taken Unknown] hyoscyamine 0.15 mg tablet 0.125 mg PO Q6H PRN PRN dyspepsia 12/27/22 [History Last Taken Unknown] isosorbide mononitrate 30 mg tablet,extended release 24 hr 30 mg PO DAILY 12/27/22 [History Last Taken Unknown] levothyroxine 75 mcg capsule 75 mcg PO DAILY 12/27/22 [History Last Taken Unknown] lisinopril 2.5 mg tablet 2.5 mg PO DAILY 12/27/22 [History Last Taken Unknown] meclizine 12.5 mg tablet 12.5 mg PO TID PRN dizziness 12/27/22 [History Last Taken Unknown] ondansetron 4 mg disintegrating tablet 4 mg PO Q6H PRN nausea and vomiting 12/27/22 [History Last Taken Unknown] oxybutynin chloride 15 mg tablet,extended release 24 hr 15 mg PO DAILY 12/27/22 [History Last Taken Unknown] pantoprazole 40 mg tablet,delayed release 40 mg PO DAILY 12/27/22 [History Last Taken Unknown] pioglitazone 15 mg tablet 15 mg PO DAILY 12/27/22 [History Last Taken Unknown] rosuvastatin 20 mg tablet 20 mg PO DAILY 12/27/22 [History Last Taken Unknown] tizanidine 4 mg capsule 4 mg PO Q8H 12/27/22 [History Last Taken Unknown] Allergy/AdvReac Type Severity Reaction Status Date / Time clindamycin Allergy Mild Hives Verified 12/27/22 13:14 amoxicillin [Amoxicillin] Allergy Hives Verified 12/17/17 20:49 cefaclor [From Ceclor] Allergy Hives Verified 12/17/17 20:49 erythromycin base Allergy Hives Verified 12/17/17 20:49 [Erythromycin Base] nitrofurantoin Allergy Hives Verified 12/17/17 20:49 macrocrystalline [From Macrodantin] Penicillins Allergy Hives Verified 12/17/17 20:49 Sulfa (Sulfonamide AdvReac Vomiting Verified 12/17/17 20:49 Antibiotics) Surgical History History of appendectomy History of bilateral breast reduction surgery History of bunionectomy of both great toes History of carpal tunnel release History of cholecystectomy History of colon resection History of hysterectomy Social History Smoking Status: Never smoker ROS Constitutional Constitutional: Denies chills, fatigue, fever(s) or weakness Eyes Eyes: Denies blurry vision, double vision or eye pain ENT HEENT: Denies dysphagia, nasal congestion, nasal discharge or sore throat Cardiovascular Cardiovascular: Denies chest pain, claudication or palpitations Respiratory/Chest Respiratory/Chest: Denies cough, shortness of breath with exertion or wheezing Gastrointestinal Gastrointestinal: Denies abdominal pain, constipation, diarrhea, nausea or vomiting Genitourinary Genitourinary: Denies dysuria, hematuria or urinary frequency Musculoskeletal Musculoskeletal: Denies joint pain, joint stiffness or joint swelling Integumentary Integumentary: Denies lesions, pruritus or rash Neurologic Neurologic: Denies dizziness, numbness or seizures Endocrine Endocrinology: Denies cold intolerance or heat intolerance Hematologic/Lymphatic Hematologic/Lymphatic: Denies easy bleeding or easy bruising Vital Signs Vital Signs Vital Signs: 01/11/23 10:28 Pulse Rate 84 Respiratory Rate 16 Blood Pressure 160/90 H Blood Pressure Mean 113 Blood Pressure Source Monitor Blood Pressure Position Semi-Fowlers Blood Pressure Location Left Arm Weight Weight: 121.109 kg Body Mass Index (BMI) 41.8 Physical Exam Const alert, oriented x3, no apparent distress and well nourished General Appearance: cooperative HEENT normocephalic Eyes General Eye: normal appearance of both eyes Neck General: normal visual inspection Lymph Lymphatic: no lymphadenopathy noted and no lymphedema noted Resp normal respiratory effort Cardio regular rate and regular rhythm Extremity normal capillary refill, no joint enlargement, no calf tenderness and no pedal edema Extremity Narrative: DP and PT pulses palpable bilateral. Capillary fill time adequate to the digits bilateral. Dermatological: Ulceration is noted to the plantar medial aspect of the right hallux. There is some hyperkeratotic tissue buildup about the ulcerative rim in addition to hyperkeratotic buildup at the plantar medial aspect of the first metatarsophalangeal joint/Sub first metatarsal head. No purulent drainage, no erythema, no malodor, no palpable fluctuance/bogginess noted, no visible abscess formation. Musculoskeletal: Muscle strength 5 of 5 age-appropriate. Decreased range of motion of the first metatarsophalangeal joint of the right foot without pain or crepitus. Full, pain-free range of motion of the hallucal interphalangeal joint. Decreased range of motion of the ankle joint dorsiflexion with the knee extended without pain or crepitus. Skin no rashes or lesions noted, skin turgor normal and no jaundice Neuro moves all extremities Debridement Note Debridement Note Wound debrided: Plantar right hallux Laterality: Right Wound Grade/Stage: Worrell stage I Type of Debridement: Excisional debridement Anesthesia Used: 5% Lidocaine Gel Depth: Down to and including healthy tissue and in the subcutaneous layer Percentage of wound debrided: 100 Instrument Used: #15 blade Tissue Removed: Fibrous, devitalized subcutaneous, biofilm, slough Severity: Fat Layer Exposed Amount of bleeding with debridement: Mild Bleeding Controlled with: Compression and gauze Patient tolerated procedure: Patient tolerated procedure well Post-Debridement Measurements and Additional Note: Post-Debridement Measurements/Treatment WC - Nurse 1 - General Ulcer Assessment Start: 12/27/22 12:55 Freq: Status: Active Protocol: CYNDI Activity Type Activity Date Activity User E-sign Co-sign Detail Recorded Client Recorded Date Recorded By Document 12/27/22 12:56 BMF [id number] 12/27/22 13:09 BMF Document 01/02/23 10:23 MW [id number] 01/02/23 10:28 MW Document 01/11/23 10:28 JF [id number] 01/11/23 10:35 JF 12/27/22 01/02/23 01/11/23 12:56 10:23 10:28 WC - Today's Visit Information Type of service Follow-up Visit Follow-up Visit Follow-up Visit (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 (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 (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 ) ) ) Arrival Mode Ambulatory Ambulatory Ambulatory Transfer Assistance None None Accompanied by Patient Identification Verified (Name & Yes Yes Yes ) Patient Requires Transmission-Based No No No Precautions Safety Precautions NA Finger Stick Blood Sugar(mg/dl) (if 123 indicated): Blood Sugar Stated by Patient Height and Weight Height 5 ft 7 in Weight 121.109 kg Weight in Pounds 267.0 lbs Body Mass Index (BMI) 41.8 41.8 41.8 BMI Classification Obese Obese Obese BSA - Nancy 2.29 Vital Signs Temperature (97.8 F-99.1 F) 96.8 F L 97.2 F L Temperature Source Temporal Temporal Pulse Rate (60-100) 77 79 84 Pulse Location Monitor Monitor Monitor Respiratory Rate (12-18) 16 18 16 Respiratory rate source Observation Observation Observation Oxygen Delivery Method Room Air Room Air Blood Pressure (90/60-120/80) 173/82 H 165/81 H 160/90 H Blood Pressure Mean 112 109 113 Source Monitor Monitor Monitor Position Sitting Sitting Semi-Fowlers Blood Pressure Location Left Arm Left Arm Left Arm History Since Last Visit- (Skip if this is Patient's initial visit) Have you changed medications since your No No last visit? Any new allergies or adverse reactions No No Had a fall/change in ADL's that may No No increase risk of falls Signs or symptoms of abuse and/or No No neglect since last visit Have you been in the hospital since your No No last visit? Has dressing in place as prescribed Yes Yes Has compression in place as prescribed N/A N/A Has offloadiing in place as prescribed N/A No Experienced any changes in pain level or No No management Left Footwear Regular Shoe Regular Shoe Regular Shoe Right Footwear Regular Shoe Regular Shoe Regular Shoe Pain Scale: 0-10 Numeric Is Patient Pain Free? Yes Yes Yes Lower Extremity Assessment/ Foot Assessment/ Toe Nail Assessment Right -Posterior Tibial Doppler Multiphasic -Dorsalis Pedis Doppler Multiphasic -Extremity Color Pale -Hair Growth on Legs Yes -Hair Growth on Toes No -Other Deformity No -Prior Foot Ulcer No -Charcot Joint No -Prior Amputation No -Thick No -Discolored No -Deformed No -Improper Length & Hygeine No Left -Posterior Tibial Doppler Multiphasic -Dorsalis Pedis Doppler Multiphasic -Extremity Color Pale -Hair Growth on Legs Yes -Hair Growth on Toes No -Other Deformity No -Prior Foot Ulcer No -Charcot Joint No -Prior Amputation No -Thick No -Discolored No -Deformed No -Improper Length & Hygeine No Communication Assessment Preferred language [employer] Manager Required No Able to Read Yes Able to Write Yes Communication Tools None Right Hearing Abillity Normal Left Hearing Abillity Normal Visual Assistive Devices Glasses Teaching Assessment Preferences Verbal,Written, Audio/Visual, Demonstration Barriers to Learning None Readiness To Learn Excellent Willingness to Engage in Self Management High Activies Readiness to Engage in Self Management High Activities Anxiety Level Calm Cooperation Cooperative Perception Coherent Interest in Health Problem Asks Questions Education Importance Acknowledges Need Does Patient Smoke tobacco or other No substances Smoking Status Never smoker Is Patient Diabetic Yes Functional Assessment Recent Decline in Ability to Perform Denies Any Declines 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 Cultural/Episcopal Needs that may affect No Treatment Plan Teaching: Wound Center *Welcome to the Wound Center -Person Taught Patient, Significant Other -Response to teaching Verbalize understanding Welcome to the Wound Care Center English ROCHA - Nurse 1 - General Ulcer Measurement Start: 12/27/22 12:55 Freq: Status: Active Protocol: Activity Type Activity Date Activity User E-sign Co-sign Detail Recorded Client Recorded Date Recorded By Document 12/27/22 12:56 [facility] [id number] 12/27/22 13:09 [facility] Document 01/02/23 10:23 [id number] 01/02/23 10:28 MW Document 01/11/23 10:28 [id number] 01/11/23 10:35 JF 12/27/22 01/02/23 01/11/23 12:56 10:23 10:28 Wound Center Nurse 1 #1- R HALLUX PLANTAR -Combined with other wound No No No -Current Size (cm) - Length 0.1 0.1 0.2 -Current Size (cm) - Width 1 0.1 0.2 -Current Size (cm) - Depth 0.1 0.1 0.4 -Total Square Cm 0.1 0.01 0.04 -Date of Last Picture (Recall this 12/27/22 field) -Photo Taken Yes No No -Epithelialization None Present None Present None Present -Tunneling No No No -Undermining/Tunneling No No No -Circular Undermining No No Yes -Exudate Amt Small Small Small -Exudate Type Serosanguineous Serosanguineous Serosanguineous -Wound Margin Distinct, Thickened Flat & Intact Outline Attached -Granulation Amt Small (1-33%) None Present (0 None Present (0 %) %) -Granulation Quality Red N/A -Slough/Fibrin Yes Yes Yes -Necrosis Amt Large (67-100%) Large (67-100%) Large (67-100%) -Necrotic Tissue Type Adherent Slough Adherent Slough Adherent Slough -Structure Exposed N/A N/A -Texture ([place]-wound Skin Appearance) Callus,Scarring Assessed,Callus Assessed,Callus -Moisture ([place]-wound Skin Appearance) Assessed,Dry/ No Abnormality, Assessed,Dry/ Scaly Assessed Scaly -Color ([place]-wound Skin Appearance) Assessed No Abnormality, Assessed Assessed -Temperature ([place]-wound Skin No Abnormality No Abnormality Appearance) (Pt Warm) (Pt Warm) -Tenderness on Palpation ([place]-wound No No Skin Appearance) -Ulcer Cleansing Rinsed/ Rinsed/ Rinsed/ Irrigated with Irrigated with Irrigated with Saline Saline Saline -Foul Odor after Cleansing No No No -Anesthetic Used 5% Lidocaine 5% Lidocaine 5% Lidocaine Gel Gel Gel Lower Limb Edema Present Yes No NA Right Calf (cm) 38.1 Right Ankle (cm) 21 WC - Nurse 2 - General Ulcer CM Notes Start: 12/27/22 12:55 Freq: Status: Active Protocol: Activity Type Activity Date Activity User E-sign Co-sign Detail Recorded Client Recorded Date Recorded By Document 12/27/22 16:06 PL [id number] 12/27/22 16:07 PL Document 01/11/23 12:26 PL [id number] 01/11/23 12:26 PL 12/27/22 01/11/23 16:06 12:26 Wound Center Nurse 2 #1- R HALLUX PLANTAR -Time 13:29 11:16 -Correct Patient Yes Yes -Correct Side, Site, Position Yes Yes -Correct Procedure Yes Yes -Procedure Performed Yes Yes -Type of Procedure Debridement Debridement -Clinical Debridement Subcutaneous Subcutaneous -Tissue Removed Subcutaneous Subcutaneous -Post Debridement (cm) - Length 0.1 0.3 -Post Debridement (cm) - Width 1.0 0.4 -Post Debridement (cm) - Depth 0.1 0.1 -Total Square (Post) (cm) 0.10 0.12 -Area of Debridement (cm) - Length 0.1 0.3 -Area of Debridement (cm) - Width 1.0 0.4 -Total Square (Area) (cm) 0.10 0.12 -Tunneling No No -Undermining/Tunneling No No -Circular Undermining No No -Wound/Ulcer Outcome Not Healed Not Healed -Ulcer Cleansing Rinsed/ Rinsed/ Irrigated with Irrigated with Saline Saline -Foul Odor after Cleansing No No -Bioengineered Tissue No No -Bleeding Controlled with Pressure Pressure -Treatment Response Procedure Procedure Tolerated Well Tolerated Well -Debridement - Subq, 1st 20sq cm Yes Yes Pain Scale: 0-10 Numeric Is Patient Pain Free? Yes Yes WC - Nurse 3 - General Ulcer D/C NN Start: 12/27/22 12:55 Freq: Status: Active Protocol: Activity Type Activity Date Activity User E-sign Co-sign Detail Recorded Client Recorded Date Recorded By Document 12/27/22 13:49 KW [id number] 12/27/22 13:50 KW Document 01/11/23 12:07 AK [id number] 01/11/23 12:07 AK 12/27/22 01/11/23 13:49 12:07 Wound Care Center Nurse 3 #1- R HALLUX PLANTAR -Ulcer Cleansing Rinsed/ Rinsed/ Irrigated with Irrigated with Saline Saline -Foul Odor after Cleansing No -Negative Pressure Wound Therapy N/A -Primary Dressing Applied C Hydrogel ($) C Hydrogel ($) -Other Dressing coban and foam -Primary Dressing Covered/Secured with Dry Gauze, Dry Gauze Secured with Tape Pain Scale: 0-10 Numeric Is Patient Pain Free? Yes Yes WC - Visit Discharge Discharge Condition Stable Stable Ambulatory Status Ambulatory Ambulatory Transportation Private Auto Private Auto Medication Reconcilliation completed & No Yes provided to patient/care provider Clinical Summary of Care Provided Yes Yes Assessment/Plan Assessment/Plan (1) Diabetes mellitus: CODE(S): E11.9 - Type 2 diabetes mellitus without complications (2) Morbid obesity with BMI of 40.0-44.9, adult: CODE(S): E66.01 - Morbid (severe) obesity due to excess calories; Z68.41 - Body mass index [BMI] 40.0-44.9, adult (3) Hypertension: CODE(S): I10 - Essential (primary) hypertension (4) Hypothyroidism: CODE(S): E03.9 - Hypothyroidism, unspecified (5) Delayed wound healing: CODE(S): T14.8XXD - Other injury of unspecified body region, subsequent encounter (6) Acquired hallux limitus of right foot: CODE(S): M20.5X1 - Other deformities of toe(s) (acquired), right foot (7) Acquired hallux malleus of right foot: CODE(S): M20.31 - Hallux varus (acquired), right foot (8) Non-pressure chronic ulcer of other part of right foot with fat layer exposed: CODE(S): L97.512 - Non-pressure chronic ulcer of other part of right foot with fat layer exposed PLAN: Plan Patient seen and evaluated Ulceration to the plantar medial right hallux underwent debridement as noted in the clinical panel above. Ulceration measures 0.3 cm x 0.4 cm x 0.1 cm. No signs of infection. Plantar offloading padding was placed Sub first metatarsal head and about the plantar hallux. Wound was dressed with hydrogel and dry sterile dressing. She is to change the dressing daily. Discussed that her ulceration is secondary to hallux limitus as her first metatarsophalangeal joint does not achieve full dorsiflexion increasing the lever arm of the first ray in which the hallucal IPJ becomes focal point of range of motion with increased plantar stress at this region creating ulceration. Discussed effective offloading with the plantar padding to aid in wound healing. Discussed that this is essential as pressure is the primary cause. Discussed once ulceration is healed transitioning into protective diabetic insert with Mclaughlin's extension to aid in offloading of the hallux. Also discussed surgical intervention of Pena procedure versus proximal phalanx head resection to effectively achieve offloading of the plantar hallux. At this time they would like to continue with conservative treatments to achieve healing and offloading. Discussed proper diabetic diet to achieve tight glycemic control. Last A1c was 6.8%. Encouraged continued diabetic diet and exercise daily to continue to maintain tight glycemic control, weight loss, and overall benefit of health. Discussed adequate protein intake to aid in wound healing. Discussed avoidance of barefoot at all times, socks include barefoot. Encouraged shoe gear to be worn at all times given diabetic status. Encouraged daily foot checks and risks associated with ulceration development. They voiced understanding of the discussion today. Discussed signs and symptoms of infection. She was instructed if she notices increasing redness about the wound site that spreads to the top of the foot and up the leg, purulent drainage from the wound, increasing foul odor, or if she experiences fever greater than 101 degree, nausea, vomiting, chills that these are signs of a progressing infection and she needs to report to the ED. They voiced understanding of this today. The following work up and care recommendations were made: Dressing: Hydrogel dry sterile dressing and plantar offloading padding to the right hallux Wash: Soap and water Tissue growth optimization: Hydrogel Offload: Plantar offloading to the Sub first metatarsal head and plantar hallux Vascular: Palpable DP and PT pulses with adequate capillary fill time to the digits. Edema: None Infection: No signs of infection Pain: May take [id number] Tylenol for discomfort Host factors: DM type II, hallux limitus, prior failure of offloading. I answered all the patient's questions. To return to the wound healing center in 1 week or call sooner if the patient has any questions or concerns.
[2023-01-18 10:09] VITALS: BP 164/76; PULSE 79; RESP 22; TEMP 36.1; BMI 41.8
--- NOTE | 2023-01-18 11:15 | PN.PCM_ITS ---
History of Present Illness Date of Service: 01/18/23 Chief Complaint: Chronic wound of the right great toe History of Wound: This is a 67-year-old diabetic female who presented with open wound on the right great toe which had been present for approximately 7 weeks. She is somewhat uncertain as to the etiology of the wound, though does not exclude the possibility of trauma. She had been intermittently applying Neosporin topically. She was diagnosed with cellulitis by her primary care physician, and has been treated with courses of oral Cipro and Bactrim. An x- ray on December 15, 2022, revealed no evidence of osteomyelitis or foreign body. The patient monitors her blood sugars, and is only moderately well controlled. Recent blood work was done at [facility], with results as follows: Hemoglobin A1c 6.8, glucose 121, TSH 2.40, sodium 143, potassium 4.1, chloride 103, BUN 8, creatinine 0.94, calcium 9.2, protein 6.2, albumin 3.5, alkaline phosphatase 71, AST 18, ALT 36, cholesterol 205, triglycerides 118, HDL cholesterol 49, LDL cholesterol 132. Subjective Subjective This is a 67-year-old female who follows to the wound care center today for a plantar right hallux ulceration. She states she is continue to offload the site with the plantar padding as instructed. She does admit to some discomfort if she goes barefoot. Patient is diabetic and she knows that barefoot is discouraged. She denies constitutional symptoms. She denies further complaints. Objective Data Objective Data Vital Signs: Vital Signs Temp Pulse Resp BP O2 Del Method 97 F L 79 22 H 164/76 H Room Air 01/18/23 10:01/18/23 10:01/18/23 10:01/18/23 10:01/02/23 10:23 Oxygen Delivery Method Room Air Weight: 121.109 kg Body Mass Index (BMI) 41.8 Physical Exam Const alert, oriented x3, no apparent distress and well nourished General Appearance: cooperative HEENT normocephalic Eyes General Eye: normal appearance of both eyes Neck General: normal visual inspection Lymph Lymphatic: no lymphadenopathy noted and no lymphedema noted Resp normal respiratory effort Cardio regular rate and regular rhythm Extremity normal capillary refill, no joint enlargement, no calf tenderness and no pedal edema Extremity Narrative: DP and PT pulses palpable bilateral. Capillary fill time adequate to the digits bilateral. Dermatological: Ulceration noted to the plantar medial aspect of the right hallux has healed. There is hyperkeratotic tissue buildup at site of previous wound in addition to hyperkeratotic buildup at the plantar medial aspect of the first metatarsophalangeal joint/Sub first metatarsal head. No purulent drainage, no erythema, no malodor, no palpable fluctuance/bogginess noted, no visible abscess formation. Musculoskeletal: Muscle strength 5 of 5 age-appropriate. Decreased range of motion of the first metatarsophalangeal joint of the right foot without pain or crepitus. Full, pain-free range of motion of the hallucal interphalangeal joint. Decreased range of motion of the ankle joint dorsiflexion with the knee extended without pain or crepitus. Skin no rashes or lesions noted, skin turgor normal and no jaundice Neuro moves all extremities Debridement Note Debridement Note No debridement was completed: No debridement was completed today Post-Debridement Measurements and Additional Note: Post-Debridement Measurements/Treatment - Nurse 1 - General Ulcer Assessment Start: 12/27/22 12:55 Freq: Status: Active Protocol: [email or web address].LOWCHRISTOPHE Activity Type Activity Date Activity User E-sign Co-sign Detail Recorded Client Recorded Date Recorded By Document 12/27/22 12:56 [facility] [id number] 12/27/22 13:09 [facility] Document 01/02/23 10:23 [id number] 01/02/23 10:28 Document 01/11/23 10:28 [id number] 01/11/23 10:35 Document 01/18/23 10:09 DL [id number] 01/18/23 10:17 DL 12/27/22 01/02/23 01/11/23 12:56 10:23 10:28 - Today's Visit Information Type of service Follow-up Visit Follow-up Visit Follow-up Visit (Physician/IMPRESSION PRINTER (Physician/IMPRESSION PRINTER (Physician/IMPRESSION PRINTER ) ) ) Arrival Mode Ambulatory Ambulatory Ambulatory Transfer Assistance None None Accompanied by Patient Identification Verified (Name & Yes Yes Yes ) Patient Requires Transmission-Based No No No Precautions Safety Precautions NA Finger Stick Blood Sugar(mg/dl) (if 123 indicated): Blood Sugar Stated by Patient Height and Weight Height 5 ft 7 in Weight 121.109 kg Weight in Pounds 267.0 lbs Body Mass Index (BMI) 41.8 41.8 41.8 BMI Classification Obese Obese Obese BSA - Nancy 2.29 Vital Signs Temperature (97.8 F-99.1 F) 96.8 F L 97.2 F L Temperature Source Temporal Temporal Pulse Rate (60-100) 77 79 84 Pulse Location Monitor Monitor Monitor Respiratory Rate (12-18) 16 18 16 Respiratory rate source Observation Observation Observation Oxygen Delivery Method Room Air Room Air Blood Pressure (90/60-120/80) 173/82 H 165/81 H 160/90 H Blood Pressure Mean (mm Hg) 112 109 113 Source Monitor Monitor Monitor Position Sitting Sitting Semi-Fowlers Blood Pressure Location Left Arm Left Arm Left Arm History Since Last Visit- (Skip if this is Patient's initial visit) Have you changed medications since your No No last visit? Any new allergies or adverse reactions No No Had a fall/change in ADL's that may No No increase risk of falls Signs or symptoms of abuse and/or No No neglect since last visit Have you been in the hospital since your No No last visit? Has dressing in place as prescribed Yes Yes Has compression in place as prescribed N/A N/A Has offloadiing in place as prescribed N/A No Experienced any changes in pain level or No No management Left Footwear Regular Shoe Regular Shoe Regular Shoe Right Footwear Regular Shoe Regular Shoe Regular Shoe Pain Scale: 0-10 Numeric Is Patient Pain Free? Yes Yes Yes Lower Extremity Assessment/ Foot Assessment/ Toe Nail Assessment Right -Posterior Tibial Doppler Multiphasic -Dorsalis Pedis Doppler Multiphasic -Extremity Color Pale -Hair Growth on Legs Yes -Hair Growth on Toes No -Other Deformity No -Prior Foot Ulcer No -Charcot Joint No -Prior Amputation No -Thick No -Discolored No -Deformed No -Improper Length & Hygeine No Left -Posterior Tibial Doppler Multiphasic -Dorsalis Pedis Doppler Multiphasic -Extremity Color Pale -Hair Growth on Legs Yes -Hair Growth on Toes No -Other Deformity No -Prior Foot Ulcer No -Charcot Joint No -Prior Amputation No -Thick No -Discolored No -Deformed No -Improper Length & Hygeine No Communication Assessment Preferred language [place] Certified Performance Technologist Required No Able to Read Yes Able to Write Yes Communication Tools None Right Hearing Abillity Normal Left Hearing Abillity Normal Visual Assistive Devices Glasses Teaching Assessment Preferences Verbal,Written, Audio/Visual, Demonstration Barriers to Learning None Readiness To Learn Excellent Willingness to Engage in Self Management High Activies Readiness to Engage in Self Management High Activities Anxiety Level Calm Cooperation Cooperative Perception Coherent Interest in Health Problem Asks Questions Education Importance Acknowledges Need Does Patient Smoke tobacco or other No substances Smoking Status Never smoker Is Patient Diabetic Yes Functional Assessment Recent Decline in Ability to Perform Denies Any Declines Culture/Restorationism/Rib Puller Cultural/Restorationism Needs that may affect No Treatment Plan Teaching: Wound Center *Welcome to the Wound Center -Person Taught Patient, Significant Other -Response to teaching Verbalize understanding Welcome to the Wound Care Center [place] 01/18/23 10:09 WC - Today's Visit Information Type of service Follow-up Visit (Physician/IMPRESSION PRINTER ) Arrival Mode Cane Transfer Assistance None Accompanied by Patient Identification Verified (Name & Yes ) Patient Requires Transmission-Based No Precautions Safety Precautions Finger Stick Blood Sugar(mg/dl) (if indicated): Blood Sugar Height and Weight Height Weight Weight in Pounds Body Mass Index (BMI) 41.8 BMI Classification Obese [facility] - Nancy Vital Signs Temperature (97.8 F-99.1 F) 97 F L Temperature Source Temporal Pulse Rate (60-100) 79 Pulse Location Monitor Respiratory Rate (12-18) 22 H Respiratory rate source Observation Oxygen Delivery Method Blood Pressure (90/60-120/80) 164/76 H Blood Pressure Mean (mm Hg) 105 Source Monitor Position Blood Pressure Location History Since Last Visit- (Skip if this is Patient's initial visit) Have you changed medications since your No last visit? Any new allergies or adverse reactions No Had a fall/change in ADL's that may No increase risk of falls Signs or symptoms of abuse and/or No neglect since last visit Have you been in the hospital since your No last visit? Has dressing in place as prescribed Yes Has compression in place as prescribed Yes Has offloadiing in place as prescribed N/A Experienced any changes in pain level or No management Left Footwear Right Footwear Pain Scale: 0-10 Numeric Is Patient Pain Free? Yes Lower Extremity Assessment/ Foot Assessment/ Toe Nail Assessment Right -Posterior Tibial Doppler -Dorsalis Pedis Doppler -Extremity Color -Hair Growth on Legs -Hair Growth on Toes -Other Deformity -Prior Foot Ulcer -Charcot Joint -Prior Amputation -Thick -Discolored -Deformed -Improper Length & Hygeine Left -Posterior Tibial Doppler -Dorsalis Pedis Doppler -Extremity Color -Hair Growth on Legs -Hair Growth on Toes -Other Deformity -Prior Foot Ulcer -Charcot Joint -Prior Amputation -Thick -Discolored -Deformed -Improper Length & Hygeine Communication Assessment Preferred telephone answering service operator Required Able to Read Able to Write Communication Tools Right Hearing Abillity Left Hearing Abillity Visual Assistive Devices Teaching Assessment Preferences Barriers to Learning Readiness To Learn Willingness to Engage in Self Management Activies Readiness to Engage in Self Management Activities Anxiety Level Cooperation Perception Interest in Health Problem Education Importance Does Patient Smoke tobacco or other substances Smoking Status Is Patient Diabetic Functional Assessment Recent Decline in Ability to Perform Culture/Restorationism/Rib Puller Cultural/Restorationism Needs that may affect Treatment Plan Teaching: Wound Center *Welcome to the Wound Center -Person Taught -Response to teaching Welcome to the Wound Care Center WC - Nurse 1 - General Ulcer Measurement Start: 12/27/22 12:55 Freq: Status: Active Protocol: Activity Type Activity Date Activity User E-sign Co-sign Detail Recorded Client Recorded Date Recorded By Document 12/27/22 12:56 [facility] [id number] 12/27/22 13:09 [facility] Document 01/02/23 10:23 [id number] 01/02/23 10:28 Document 01/11/23 10:28 [id number] 01/11/23 10:35 Document 01/18/23 10:09 DL [id number] 01/18/23 10:17 DL 12/27/22 01/02/23 01/11/23 12:56 10:23 10:28 Wound Center Nurse 1 #1- R HALLUX PLANTAR -Combined with other wound No No No -Current Size (cm) - Length 0.1 0.1 0.2 -Current Size (cm) - Width 1 0.1 0.2 -Current Size (cm) - Depth 0.1 0.1 0.4 -Total Square Cm 0.1 0.01 0.04 -Date of Last Picture (Recall this 12/27/22 field) -Photo Taken Yes No No -Epithelialization None Present None Present None Present -Tunneling No No No -Undermining/Tunneling No No No -Circular Undermining No No Yes -Exudate Amt Small Small Small -Exudate Type Serosanguineous Serosanguineous Serosanguineous -Wound Margin Distinct, Thickened Flat & Intact Outline Attached -Granulation Amt Small (1-33%) None Present (0 None Present (0 %) %) -Granulation Quality Red N/A -Slough/Fibrin Yes Yes Yes -Necrosis Amt Large (67-100%) Large (67-100%) Large (67-100%) -Necrotic Tissue Type Adherent Slough Adherent Slough Adherent Slough -Structure Exposed N/A N/A -Texture ([place]-wound Skin Appearance) Callus,Scarring Assessed,Callus Assessed,Callus -Moisture ([place]-wound Skin Appearance) Assessed,Dry/ No Abnormality, Assessed,Dry/ Scaly Assessed Scaly -Color ([place]-wound Skin Appearance) Assessed No Abnormality, Assessed Assessed -Temperature ([place]-wound Skin No Abnormality No Abnormality Appearance) (Pt Warm) (Pt Warm) -Tenderness on Palpation ([place]-wound No No Skin Appearance) -Ulcer Cleansing Rinsed/ Rinsed/ Rinsed/ Irrigated with Irrigated with Irrigated with Saline Saline Saline -Foul Odor after Cleansing No No No -Anesthetic Used 5% Lidocaine 5% Lidocaine 5% Lidocaine Gel Gel Gel Lower Limb Edema Present Yes No NA Right Calf (cm) 38.1 Right Ankle (cm) 01/18/23 10:09 Wound Center Nurse 1 #1- R HALLUX PLANTAR -Combined with other wound -Current Size (cm) - Length 0.1 -Current Size (cm) - Width 0.1 -Current Size (cm) - Depth 0.1 -Total Square Cm 0.01 -Date of Last Picture (Recall this field) -Photo Taken -Epithelialization -Tunneling -Undermining/Tunneling -Circular Undermining -Exudate Amt None Present -Exudate Type -Wound Margin Thickened -Granulation Amt Large (67-100%) -Granulation Quality Pale -Slough/Fibrin -Necrosis Amt Small (1-33%) -Necrotic Tissue Type Adherent Slough -Structure Exposed N/A -Texture ([place]-wound Skin Appearance) Callus,Scarring -Moisture ([place]-wound Skin Appearance) Dry/Scaly -Color ([place]-wound Skin Appearance) No Abnormality -Temperature ([place]-wound Skin No Abnormality Appearance) (Pt Warm) -Tenderness on Palpation ([place]-wound Skin Appearance) -Ulcer Cleansing Rinsed/ Irrigated with Saline -Foul Odor after Cleansing No -Anesthetic Used 5% Lidocaine Gel Lower Limb Edema Present Right Calf (cm) 37 Right Ankle (cm) 20.3 WC - Nurse 2 - General Ulcer CM Notes Start: 12/27/22 12:55 Freq: Status: Active Protocol: Activity Type Activity Date Activity User E-sign Co-sign Detail Recorded Client Recorded Date Recorded By Document 12/27/22 16:06 PL [id number] 12/27/22 16:07 PL Document 01/11/23 12:26 PL [id number] 01/11/23 12:26 PL 12/27/22 01/11/23 16:06 12:26 Wound Center Nurse 2 #1- R HALLUX PLANTAR -Time 13:29 11:16 -Correct Patient Yes Yes -Correct Side, Site, Position Yes Yes -Correct Procedure Yes Yes -Procedure Performed Yes Yes -Type of Procedure Debridement Debridement -Clinical Debridement Subcutaneous Subcutaneous -Tissue Removed Subcutaneous Subcutaneous -Post Debridement (cm) - Length 0.1 0.3 -Post Debridement (cm) - Width 1.0 0.4 -Post Debridement (cm) - Depth 0.1 0.1 -Total Square (Post) (cm) 0.10 0.12 -Area of Debridement (cm) - Length 0.1 0.3 -Area of Debridement (cm) - Width 1.0 0.4 -Total Square (Area) (cm) 0.10 0.12 -Tunneling No No -Undermining/Tunneling No No -Circular Undermining No No -Wound/Ulcer Outcome Not Healed Not Healed -Ulcer Cleansing Rinsed/ Rinsed/ Irrigated with Irrigated with Saline Saline -Foul Odor after Cleansing No No -Bioengineered Tissue No No -Bleeding Controlled with Pressure Pressure -Treatment Response Procedure Procedure Tolerated Well Tolerated Well -Debridement - Subq, 1st 20sq cm Yes Yes Pain Scale: 0-10 Numeric Is Patient Pain Free? Yes Yes WC - Nurse 3 - General Ulcer D/C NN Start: 12/27/22 12:55 Freq: Status: Active Protocol: Activity Type Activity Date Activity User E-sign Co-sign Detail Recorded Client Recorded Date Recorded By Document 12/27/22 13:49 KW [id number] 12/27/22 13:50 KW Document 01/11/23 12:07 AK [id number] 01/11/23 12:07 AK 12/27/22 01/11/23 13:49 12:07 Wound Care Center Nurse 3 #1- R HALLUX PLANTAR -Ulcer Cleansing Rinsed/ Rinsed/ Irrigated with Irrigated with Saline Saline -Foul Odor after Cleansing No -Negative Pressure Wound Therapy N/A -Primary Dressing Applied C Hydrogel ($) C Hydrogel ($) -Other Dressing coban and foam -Primary Dressing Covered/Secured with Dry Gauze, Dry Gauze Secured with Tape Pain Scale: 0-10 Numeric Is Patient Pain Free? Yes Yes WC - Visit Discharge Discharge Condition Stable Stable Ambulatory Status Ambulatory Ambulatory Transportation Private Auto Private Auto Medication Reconcilliation completed & No Yes provided to patient/care provider Clinical Summary of Care Provided Yes Yes Assessment/Plan Assessment/Plan (1) Diabetes mellitus: CODE(S): E11.9 - Type 2 diabetes mellitus without complications (2) Morbid obesity with BMI of 40.0-44.9, adult: CODE(S): E66.01 - Morbid (severe) obesity due to excess calories; Z68.41 - Body mass index [BMI] 40.0-44.9, adult (3) Hypertension: CODE(S): I10 - Essential (primary) hypertension (4) Hypothyroidism: CODE(S): E03.9 - Hypothyroidism, unspecified (5) Delayed wound healing: CODE(S): T14.8XXD - Other injury of unspecified body region, subsequent encounter (6) Acquired hallux limitus of right foot: CODE(S): M20.5X1 - Other deformities of toe(s) (acquired), right foot (7) Acquired hallux malleus of right foot: CODE(S): M20.31 - Hallux varus (acquired), right foot (8) Non-pressure chronic ulcer of other part of right foot with fat layer exposed: CODE(S): L97.512 - Non-pressure chronic ulcer of other part of right foot with fat layer exposed PLAN: Plan Patient seen and evaluated Ulceration to the plantar medial right hallux has healed today. No signs of infection. Plantar offloading padding was placed Sub first metatarsal head and about the plantar hallux. She was instructed to continue offloading and was given additional offloading padding today. Discussed that her ulceration is secondary to hallux limitus as her first metatarsophalangeal joint does not achieve full dorsiflexion increasing the lever arm of the first ray in which the hallucal IPJ becomes focal point of range of motion with increased plantar stress at this region creating ulceration. Discussed effective offloading with the plantar padding to aid in wound healing and discourage wound formation. Discussed that this is essential as pressure is the primary cause. Discussed once ulceration is healed transitioning into protective diabetic insert with Mclaughlin's extension to aid in offloading of the hallux. Also discu ssed surgical intervention of Pena procedure versus proximal phalanx head resection to effectively achieve offloading of the plantar hallux. At this time they would like to continue with conservative treatments to achieve healing and offloading. Discussed proper diabetic diet to achieve tight glycemic control. Last A1c was 6.8%. Encouraged continued diabetic diet and exercise daily to continue to maintain tight glycemic control, weight loss, and overall benefit of health. Discussed adequate protein intake to aid in wound healing. Discussed avoidance of barefoot at all times, socks include barefoot. Encouraged shoe gear to be worn at all times given diabetic status. Encouraged daily foot checks and risks associated with ulceration development. They voiced understanding of the dis cussion today. Discussed signs and symptoms of infection. She was instructed if she notices increasing redness about the wound site that spreads to the top of the foot and up the leg, purulent drainage from the wound, increasing foul odor, or if she experiences fever greater than 101 degree, nausea, vomiting, chills that these are signs of a progressing infection and she needs to report to the ED. They voiced understanding of this today. The following work up and care recommendations were made: Dressing: Band-Aid over callus site with plantar offloading padding to the right hallux/first MTPJ Wash: Soap and water Tissue growth optimization: None Offload: Plantar offloading to the Sub first metatarsal head and plantar hallux Vascular: Palpable DP and PT pulses with adequate capillary fill time to the digits. Edema: None Infection: No signs of infection Pain: May take [id number] Tylenol for discomfort Host factors: DM type II, hallux limitus, prior failure of offloading. At this time due to healed status she is being discharged from the wound care center today. She will follow-up in office at the foot and ankle Center in 2 weeks for check and diabetic shoes with plantar offloading padding. I answered all the patient's questions. To return to the wound healing center as needed or call sooner if the patient has any questions or concerns.
== END 2023-01-22 23:59 | disposition home or self-care (01) ==
LOC: WC 10:15
PROVIDERS: PCP Family Medicine; Referring Provider Student in an Organized Health Care Education/Training Program; Visit Provider Surgery
DX: E11.621 Type 2 diabetes mellitus with foot ulcer (principal); L97.512 Non-pressure chronic ulcer of other part of right foot with fat layer exposed; E66.01 Morbid (severe) obesity due to excess calories; L90.5 Scar conditions and fibrosis of skin; R60.0 Localized edema; E03.9 Hypothyroidism, unspecified; Q66.30 Other congenital varus deformities of feet, unspecified foot; S91.109A Unspecified open wound of unspecified toe(s) without damage to nail, initial encounter; Z90.710 Acquired absence of both cervix and uterus; I10 Essential (primary) hypertension; T14.8XXA Other injury of unspecified body region, initial encounter; Z90.49 Acquired absence of other specified parts of digestive tract; Z98.890 Other specified postprocedural states; M50.31 Other cervical disc degeneration, high cervical region; M20.5X1 Other deformities of toe(s) (acquired), right foot
CPT/HCPCS: 11042; 99213; G0463

== ENCOUNTER → 2023-02-19 | Outpatient (CLI) | payer MEDICARE, SELFPAY ==
--- NOTE | 2023-02-19 08:00 | RAD_ITS ---
STUDY: X-RAY - ESOPHAGUS (BARIUM SWALLOW) WITH FLUOROSCOPY REASON FOR EXAM: Female, 67 years old. DYSPHAGIA TECHNIQUE: 16 view(s) of the esophagus were obtained following swallowing of barium. FLUOROSCOPY TIME (if supplied): (39 seconds) minutes/seconds. 28.22 mGy COMPARISON: None. FINDINGS: There is no demonstrated esophageal foreign body. There is no demonstrated stricture or mucosal abnormality. Normal gastroesophageal junction, without a demonstrated hiatal hernia. The patient ingested a 12 mm tablet of barium without any difficulty. There is atherosclerotic calcification of the aortic arch with tortuosity of the descending aorta. Normal visualized pulmonary parenchyma. Normal visualized osseous structures of the thorax. RAD/Esophagus Dual Contrast IMPRESSION: Normal plain film x-ray examination (barium swallow) of the esophagus. Electronically Signed: Nader Can MD at 16:36 EDT ,
== END | disposition home or self-care (01) ==
PROVIDERS: PCP Family Medicine; Referring Provider Otolaryngology Otolaryngology/Facial Plastic Surgery; Visit Provider Otolaryngology Otolaryngology/Facial Plastic Surgery
DX: R13.10 Dysphagia, unspecified (principal)
CPT/HCPCS: 74221